=== PATIENT | female | born 1970 | race Caucasian/White ===

== ENCOUNTER → 2021-01-15 | Outpatient (CLI) | payer BC ==
--- NOTE | 2021-01-16 08:56 | MR ---
EXAMINATION TYPE: MR brain wo con DATE OF EXAM: 01/15/2021 COMPARISON: NONE HISTORY: Headaches, seizure TECHNIQUE: T1-weighted sagittal, T2, FLAIR, and diffusion axial, and T2 coronal coronal views of the brain are submitted. FINDINGS: There is no evidence of acute ischemia. The ventricles, basal cisterns, and sulci overlying the conv exities are consistent with the patient's age. There is no mass effect. Craniocervical junction maintained. Sella turcica has a normal appearance. Orbits are symmetric. Changes of mild chronic sinusitis. No cerebellopontine angle mass. IMPRESSION: 1. No acute intracranial process
== END | disposition home or self-care (01) ==
LOC: RADMRIMAIN 08:05
PROVIDERS: ATTEND Psychiatry & Neurology Neurology
DX: R56.9 Unspecified convulsions (principal)
CPT/HCPCS: 70551

== ENCOUNTER → 2021-01-26 | Outpatient (CLI) | payer BC ==
--- NOTE | 2021-02-07 09:45 | HM ---
48 hour Holter monitor shows sinus rhythm Sinus arrhythmia Heart rates ranging from 5250 beats a minute Very occasional PACs and PVCs No sustained or nonsustained arrhythmias MTDD
== END | disposition home or self-care (01) ==
LOC: RADECHMAIN 12:22
PROVIDERS: ATTEND Psychiatry & Neurology Neurology
DX: I49.1 Atrial premature depolarization (principal); I49.3 Ventricular premature depolarization
CPT/HCPCS: 93225; 93226